=== PATIENT | female | born 1980 | race Caucasian/White ===

== ENCOUNTER 2017-04-14 18:40 | Emergency (ER) | payer OTHER ==
[2017-04-14 19:40] LABS: BASOPHILS % 0.5 (0.0-1.5); EOSINOPHILS % 1.1 % (0.0-6.8); MEAN CORPUSCULAR HEMOGLOBIN 27.9 pg (28.0-34.0); MEAN CORPUSCULAR VOLUME 83.1 fl (80.0-100.0); MONOCYTES % 3.2 % (0.0-11.0); NEUTROPHILS # 6.9 # k/uL (1.4-7.7)
[2017-04-14 19:49] LABS: eGFR (African) > 60; eGFR (Non-African) > 60
--- NOTE | 2017-04-14 20:23 | ED Physician Documentation ---
Abdominal Pain - HISTORIAN Historian: patient, spouse - HPI Stated Complaint: rt flank/abd pain Chief Complaint: Abdominal Pain Additonal Information: onset 199 last noct at work sudden onset sharp rt rt flank pain Onset: hours (199) Duration: constant (spontaneously resoxved apporox 1700hrs thios pm), waxing, waning Timing: gone now Context: denies: out of country travel Severity: moderate, severe Quality: aching, dull, cramping, sharp, stabbing Associated Symptoms: none Relieved by: other (did not) Further Comments: yes (pt pg test pos w/hx infertility) - ROS CONST: no problems GI/: denies: none (has chronic vaginal discharge since age 14) CVS/RESP: none EYES/ENT: none MS/SKIN/LYMPH: none NEURO/PSYCH: none - SOCIAL HX Smoking History: non-smoker Alcohol Use: none Drug Use: none - FAMILY HX Family History: no significant history - PAST HX Past History: other (supposed infertility) Ischemic Bowel Risk Factors: none Other History: none Surgeries/Procedures: none Home Medications: Ambulatory Orders Medication Instructions Recorded NK [NK] 04/14/17 Allergies/Adverse Reactions: Allergies Allergy/AdvReac Type Severity Reaction Status Date / Time No Known Drug Allergies Allergy Verified 04/14/17 19:21 - VITAL SIGNS Vital Signs: Vital Signs Temp Pulse Resp BP Pulse Ox 79 16 115/50 99 04/14/17 19:00 04/14/17 19:00 04/14/17 19:00 04/14/17 19:00 - REVIEWED ASSESSMENTS Nursing Assessment Reviewed: Yes Vitals Reviewed: Yes ED Results Lab/Radiology - Lab Results Lab Results: Lab Results 04/14/17 04/14/17 04/14/17 20:02 19:30 19:30 WBC 9.80 K/ul K/ul (4.00-12.00) RBC 4.86 M/ul M/ul (3.90-5.20) Hgb 13.6 g/dL g/dL (12.0-16.0) Hct 40.4 % % (34.5-46.5) MCV 83.1 fl fl (80.0-100.0) MCH 27.9 pg L pg (28.0-34.0) MCHC 33.6 g/dL g/dL (30.0-36.0) RDW 12.9 % % (11.3-14.3) Plt Count 297 K/mm3 K/mm3 (130-400) Neut % (Auto) 70.1 % % (39.0-79.0) Lymph % (Auto) 24.2 % % (16.0-50.0) [place] % (Auto) 3.2 % % (0.0-11.0) Eos % (Auto) 1.1 % % (0.0-6.8) Baso % (Auto) 0.5 (0.0-1.5) Neut # (Auto) 6.9 # k/uL # k/uL (1.4-7.7) Lymph # (Auto) 2.4 # k/uL # k/uL (0.6-4.0) [place] # (Auto) 0.3 # k/uL # k/uL (0.0-0.9) Eos # (Auto) 0.1 # k/uL # k/uL (0.0-0.6) Baso # (Auto) 0.0 # k/uL # k/uL (0.0-0.5) Reactive Lymphs % 0.9 % % (0.0-5.0) Reactive Lymphs # 0.1 # k/uL # k/uL (0.0-0.8) Sodium 138 mmol/L mmol/L (136-145) Potassium 3.6 mmol/L mmol/L (3.5-5.0) Chloride 106 mmol/L mmol/L (98-110) Carbon Dioxide 24 mmol/L mmol/L (20-32) BUN 9 mg/dL L mg/dL (10-26) Creatinine 0.7 mg/dL mg/dL (0.4-1.5) Estimated Creat Clear 100 Est GFR ( Amer) > 60 (60 - ) Est GFR (Non-Af Amer) > 60 (60 - ) Glucose 92 mg/dL mg/dL (70-99) Calcium 10.2 mg/dL mg/dL (8.5-10.5) Total Bilirubin 0.7 mg/dL mg/dL (0.2-1.2) AST 14 U/L U/L (0-41) ALT 11 U/L U/L (0-45) Alkaline Phosphatase 49 U/L U/L (46-116) Total Protein 7.9 g/dL g/dL (6.0-8.5) Albumin 5.1 g/dL g/dL (3.0-5.5) Serum HCG, Qual Positive H (NEGATIVE) - Orders Orders: ED Orders Category Date Time Status Place IV Lock 1T Care 04/14/17 19:19 Active CBC/PLATELET/DIFF Routine Lab 04/14/17 19:30 Completed CMP Routine Lab 04/14/17 19:30 Completed HCG QUANTITATIVE Routine Lab 04/14/17 19:30 Received HCG [SERUM HCG] Stat Lab 04/14/17 20:02 Completed URINALYSIS Routine Lab 04/14/17 Ordered URINE HCG Stat Lab 04/14/17 Uncollected Abdominal Pain Physical Exam - Physical Exam General Appearance: no acute distress EENT: eye inspection normal NECK: normal inspection, supple RESPIRATORY: no resp distress, chest non-tender, breath sounds normal CVS: reg rate & rhythm, heart sounds normal ABDOMEN: soft, non-tender. No: rigid, abnormal bowel sounds, distended, guarding BACK: normal inspection, no CVA tenderness SKIN: warm/dry, normal color. No: cyanosis, diaphoresis, jaundice EXTREMITIES: non-tender, normal range of motion NEURO: oriented X3, motor nml, sensation nml, mood/affect nml Vital Signs: Vital Signs Temp Pulse Resp BP Pulse Ox 79 16 115/50 99 04/14/17 19:00 04/14/17 19:00 04/14/17 19:00 04/14/17 19:00 Discharge Clincal Impression: UTERINE Referrals: Hedy Beckham FNP [Primary Care Provider] - 2 Days Home Medications: Ambulatory Orders NK [NK] 04/14/17 Comments: f/u w/ob-gyne Condition: Good Disposition: 01 HOME, SELF-CARE Decision to Admit: NO Decision Time: 20:22
[2017-04-14 21:04] VITALS: BP 98/62
[2017-04-15 06:34] LABS: APPEARANCE,URINE CLOUDY (CLEAR); COLOR,URINE YELLOW (YELLOW); OCCULT BLOOD,URINE NEGATIVE (NEGATIVE); URINE HCG POSITIVE (NEGATIVE); UROBILINOGEN URINE 0.2 Eu (0.2-1.0)
== END 2017-04-14 20:30 | disposition home or self-care (01) ==
LOC: ED 18:40
DX: Z34.90 Encounter for supervision of normal pregnancy, unspecified, unspecified trimester (principal)
CPT/HCPCS: 80053; 81002; 81025; 84702; 84703; 85025; 87086; 99283; S1016